=== PATIENT | female | born 1950 | race Caucasian/White ===

== ENCOUNTER 2016-09-24 10:25 | Day surgery (SDC) | payer MEDICARE, BC ==
[~2016-09-24 10:25] MED LIST: Bupivacaine 0.5%/EPINEPHrine 1:200,000 50 ML MDV ONE; Dextrose 5%-Lactated Ringers 1,000 ML IV SCH
[2016-09-24] MEDS ORDERED: cefOXitin 2 GM in Sodium Chloride 0.9% 50 ML IV ONE (10:50)
[2016-09-24] MEDS ORDERED: Midazolam 1 MG/ML 2 ML SDV ONE (12:44)
[2016-09-24] MEDS ORDERED: fentaNYL 250 MCG/5 ML SDV ONE (12:44)
[2016-09-24] MEDS ORDERED: Rocuronium 50 MG/5 ML Vial ONE (12:45)
[2016-09-24] MEDS ORDERED: Dexamethasone 4 MG/ML SDV ONE (12:45)
[2016-09-24] MEDS ORDERED: Propofol 200 MG/20 ML SDV ONE (12:45)
[2016-09-24] MEDS ORDERED: Ondansetron 4 MG/2 ML SDV ONE (12:45)
[2016-09-24] MEDS ORDERED: Neostigmine Methylsulfate 1 MG/ML 5 ML Syringe ONE (12:45)
[2016-09-24] MEDS ORDERED: Albuterol/Ipratropium 3.0-0.5 MG/3 ML Neb Soln NEB ONE ×2 (13:00→15:24)
[2016-09-24] MEDS ORDERED: Ketorolac 60 MG/2 ML SDV ONE (13:24)
[2016-09-24 14:54] VITALS: BP 104/70
--- NOTE | 2016-09-28 07:49 | OR ---
DATE OF PROCEDURE: 09/24/2016 PREOPERATIVE DIAGNOSIS: Circumferential rectal prolapse associated with thrombosis and marked inflammation involving two hemorrhoidal columns. POSTOPERATIVE DIAGNOSIS: Circumferential rectal prolapse associated with thrombosis and marked inflammation involving two hemorrhoidal columns. OPERATIVE PROCEDURE: Hemorrhoidectomy (two mixed hemorrhoidal columns excised) (64006). ANESTHESIA: General. WATER QUALITY SPECIALIST: JORGE Cardoza. INDICATION FOR PROCEDURE: A 66-year-old with longstanding problems with hemorrhoidal disease along with constipation. The patient presented to the clinic 2 days ago with an acute increased pain with hemorrhoids, was noted to have two hemorrhoidal columns, which were prolapsed and involved with acute thrombosis. The plan is to proceed with hemorrhoidectomy, excising those 2 areas for acute relief. Once these areas were healed up, she would likely benefit from a staple proxy to correct the overall problem with the prolapse. Potential risks of the procedure today including bleeding and infection were reviewed, and the patient wishes to proceed. DETAILS OF PROCEDURE: The patient was taken to the operating room and placed in a supine position. After general endotracheal anesthesia was induced, she was converted to a lithotomy position and the perianal area prepped. The 2 areas of concern were then excised with care taken to avoid removal of any significant underlying musculature. Once these were removed, both sites were closed with a running locked 4-0 Vicryl stitch, leaving the small end of the incision open to allow drainage if necessary. The area was then anesthetized with 0.5% Marcaine with epinephrine. No packing was placed, and the patient was taken to the recovery room in satisfactory condition. Carroll Estevez MD /[id number]
== END 2016-09-24 15:05 | disposition home or self-care (01) ==
LOC: JP.SDS 10:25
PROVIDERS: ATTEND Surgery
DX: K64.5 Perianal venous thrombosis (principal); K64.8 Other hemorrhoids; E11.40 Type 2 diabetes mellitus with diabetic neuropathy, unspecified; E78.5 Hyperlipidemia, unspecified; E03.9 Hypothyroidism, unspecified; Z95.0 Presence of cardiac pacemaker; Z88.8 Allergy status to other drugs, medicaments and biological substances; Z79.899 Other long term (current) drug therapy; Z79.82 Long term (current) use of aspirin
CPT/HCPCS: 36415; 46260; 80048; 85027; J0694; J1100; J1885; J2250; J2405; J2704; J3010; J7042; J7050; J7620; 88304

== ENCOUNTER 2016-11-15 07:47 | Day surgery (SDC) | payer MEDICARE, BC ==
[~2016-11-15 07:47] MED LIST changes: +Dexamethasone 4 MG/ML SDV ONE; -Dextrose 5%-Lactated Ringers 1,000 ML IV SCH; +Neostigmine Methylsulfate 1 MG/ML 5 ML Syringe ONE; +Ondansetron 4 MG/2 ML SDV ONE; +Propofol 200 MG/20 ML SDV ONE; +Rocuronium 50 MG/5 ML Vial ONE; +Succinylcholine/Normal Saline 200 MG/10 ML Syringe ONE; +fentaNYL 250 MCG/5 ML SDV ONE
[2016-11-15] MEDS ORDERED: Dextrose 5%-Lactated Ringers 1,000 ML IV SCH (08:00)
[2016-11-15] MEDS ORDERED: cefOXitin 2 GM in Sodium Chloride 0.9% 50 ML IV ONE (08:45)
[2016-11-15] MEDS ORDERED: Albuterol/Ipratropium 3.0-0.5 MG/3 ML Neb Soln NEB ONE (08:45)
[2016-11-15] MEDS ORDERED: Albuterol/Ipratropium 3.0-0.5 MG/3 ML Neb Soln ONE (09:02)
[2016-11-15] MEDS ORDERED: hydrOXYzine HCl 100 MG/2 ML SDV IM ONE (11:17)
[2016-11-15] MEDS ORDERED: Meperidine PF 75 MG/ML Syringe IM PRN (11:17)
[2016-11-15] MEDS ORDERED: Acetaminophen/oxyCODONE 325-5 MG Tab PO PRN (11:44)
[2016-11-15 15:03] VITALS: BP 120/61
--- NOTE | 2016-11-18 16:34 | OR ---
DATE OF PROCEDURE: 11/15/2016 PREOPERATIVE DIAGNOSIS: Hemorrhoidal bleeding. POSTOPERATIVE DIAGNOSIS: Hemorrhoidal bleeding associated with rectal prolapse. OPERATIVE PROCEDURE: 1. Stapled proctopexy for perineal approach to repair of rectal prolapse (66690). 2. Additional hemorrhoidal ligation and hemorrhoidectomy (39983). ANESTHESIA: General. INDICATION FOR PROCEDURE: A 66-year-old female, recently presenting with some thrombosed prolapsed hemorrhoids. These were excised and she is now healed. At the clinic it did not appear she had major problems with prolapse although previously it was thought that she did. Now she is having continued problems with painless rectal bleeding. The plan is to proceed with an anal exam under anesthesia and probable ligation and limited hemorrhoidectomy. In the past, we have gone over the stapled proctopexy procedure and the patient was given a handout on that and she is aware that at the time of operative exploration if we are seeing major problems with prolapse when she is relaxed then we may do the stapled proctopexy as well. Potential risks of the procedure including bleeding, infection, problems with incontinence related to hemorrhoidectomy, recurrence or persistence of bleeding problems over time as well as remote possibility of cardiopulmonary, septic, or hemorrhagic complications leading to were discussed, and the patient wishes to proceed. DETAILS OF PROCEDURE: The patient was taken to the operating room and placed in a supine position. After general endotracheal anesthesia was induced, she converted to a lithotomy position and a perianal prep was performed, initial examination did however at this point confirm quite a bit in way of prolapse with a relaxation there was significant prolapse of the mucosa as well as some degree of musculature, given this, decision was made at that point to proceed with a stapled proctopexy as doing something less than that I think would result in an inadequate result. At this point, the anal dilator was placed and a pursestring stitch of 3-0 Prolene was then placed in the rectal mucosa with plan to staple 5 cm above the dentate line. Once this was circumferentially placed, the proctopexy stapler was placed with the anvil above the pursestring with sutures were drawn up. The stapler was then closed. Vaginal examination was then undertaken to make sure that was not being incorporated in the staple line and stapler fired. Upon removal of stapler circumferential donuts of the rectal mucosa was confirmed and at that point some minor bleeding points were cauterized and at one point also sutured with 4-0 Vicryl stitch. The patient had one additional hemorrhoidal column that remained somewhat prominent and this was excised using a very limited amount of mucosal excision and then ligating that area with 4-0 Vicryl stitch; 0.5% Marcaine with epinephrine was injected circumferentially around the anal area and the patient was taken to the recovery room in satisfactory condition, no packing was placed and there were no other complications. Carroll Estevez MD /[id number]
== END 2016-11-15 14:30 | disposition home or self-care (01) ==
LOC: JP.SDS 07:47
PROVIDERS: ATTEND Surgery
DX: K63.5 Polyp of colon (principal); K62.3 Rectal prolapse; K64.8 Other hemorrhoids; E03.9 Hypothyroidism, unspecified; E11.9 Type 2 diabetes mellitus without complications; K21.9 Gastro-esophageal reflux disease without esophagitis; Z95.0 Presence of cardiac pacemaker; Z88.8 Allergy status to other drugs, medicaments and biological substances; Z87.891 Personal history of nicotine dependence; Z90.49 Acquired absence of other specified parts of digestive tract; Z98.890 Other specified postprocedural states
CPT/HCPCS: 36415; 45541; 46255; 80053; 83735; 84100; 85027; A9270; J0694; J1100; J2175; J2405; J2704; J3010; J3410; J7042; J7050; J7620; 88304

== ENCOUNTER 2016-11-17 09:58 | Inpatient (IN) | payer MEDICARE, BC ==
[2016-11-17] MEDS ORDERED: HYDROmorphone/Normal Saline 15 MG/30 ML PCA IV ONE (10:34)
[2016-11-17] MEDS ORDERED: Naloxone 0.4 MG/ML SDV IV PRN (10:38)
[2016-11-17] MEDS ORDERED: HYDROmorphone/Normal Saline 15 MG/30 ML PCA IV PRN (10:38)
[2016-11-17] MEDS ORDERED: Metoclopramide 10 MG/2 ML SDV ONE (10:43)
[2016-11-17] MEDS ORDERED: Dextrose 5%-Lactated Ringers 1,000 ML IV SCH (10:45)
[2016-11-17] MEDS ORDERED: Albuterol 8 GM Inhaler INH PRN (10:48)
[2016-11-17] MEDS: Pantoprazole 40 MG Vial IV SCH ×2 (11:11→22:26)
[2016-11-17] MEDS: Metoclopramide 10 MG/2 ML SDV IVPUSH SCH ×2 (14:26→21:40)
[2016-11-17] MEDS: Meropenem 500 MG in Sodium Chloride 0.9% 50 ML IV SCH (18:44)
[2016-11-17] MEDS: Dextrose 5%-Lactated Ringers 1,000 ML IV SCH (19:22)
[2016-11-17] MEDS: cycloSPORINE Ophth Drops U/D Box of 30 EYEBOTH SCH (21:39)
[2016-11-17] MEDS: Olopatadine 0.1% Ophth Soln 5 ML Bottle EYEBOTH SCH (21:40)
[2016-11-17] MEDS: Bisacodyl 5 MG Tab PO SCH (21:40)
[2016-11-17] MEDS: Docusate Sodium 100 MG Cap PO SCH (21:40)
[2016-11-18] MEDS: Meropenem 500 MG in Sodium Chloride 0.9% 50 ML IV SCH ×3 (02:11→17:19)
[2016-11-18] MEDS: Metoclopramide 10 MG/2 ML SDV IVPUSH SCH ×3 (05:12→23:17)
[2016-11-18] MEDS: Dextrose 5%-Lactated Ringers 1,000 ML IV SCH (05:13)
--- NOTE | 2016-11-18 07:38 | PCM.HP ---
H&P History of Present Illness - General Date of Service: 11/18/16 Admit Problem/Dx: Admission Diagnosis/Problem Admission Diagnosis/Problem Post Operative Ileus Urinary Retention Source of Information: Patient History Limitations: Reports: No Limitations - History of Present Illness Initial Comments - Free Text/Narative: Elysia had a proctectomy on 11/15/16. She presented to the clinic with post op urinary retention, abdominal pain and distention. She had not had a bowel movement since surgery. She was admitted to the hospital. Urinary retention of 850 mls of clear rainer urine. Location: Reports: Abdomen, Pelvis, Other (rectum ) Quality: Reports: Dull, Pressure Severity: Moderate Improves with: Reports: None Worsens with: Reports: None Associated Symptoms: Reports: No Other Symptoms Abdomen Pain Score (Numeric/FACES): 7 Lower Back Pain Score (Numeric/FACES): 7 Rectal Pain Score (Numeric/FACES): 5 - Related Data Allergies/Adverse Reactions: Allergies Allergy/AdvReac Type Severity Reaction Status Date / Time Nbcmrps-Oyk-Nex Reductase Allergy Fatigue Verified 11/15/16 08:06 Inhibitor propoxyphene napsylate AdvReac Unknown Dizziness Verified 11/15/16 08:06 [From Darcet-N 100] Home Medications: Home Meds Thyroid,Pork [Nature-Throid] 32.5 mg PO DAILY 12/29/13 [History] Albuterol Sulfate [Proair Hfa] 2 puff IH Q4H PRN 06/27/14 [History] Cholecalciferol (Vitamin D3) [Cholecalciferol] 1 cap PO DAILY 06/27/14 [History] Fexofenadine [Jaci] 180 mg PO DAILY 06/27/14 [History] Olopatadine [Patanol 0.1% Ophth Soln] 1 drop EYEBOTH BID 06/27/14 [History] Thyroid,Pork [Nature-Throid] 65 mg PO DAILY 06/27/14 [History] Aspirin [Adult Low Dose Aspirin EC] 81 mg PO DAILY 09/23/16 [History] Clotrimazole [Clotrimazole] 1 applic TOP DAILY 09/23/16 [History] Docusate Sodium [Colace] 200 mg PO DAILY 09/23/16 [History] Esomeprazole Magnesium [Nexium 24Hr] 20 mg PO DAILY 09/23/16 [History] Ibuprofen 800 mg PO Q8H PRN 09/23/16 [History] Polyethylene Glycol 3350 [MiraLAX] 17 gm PO DAILY PRN 09/23/16 [History] cycloSPORINE [Restasis] 1 drop EYEBOTH BID 09/23/16 [History] Nitroglycerin [Rectiv] 1 film RECTAL BID 11/11/16 [History] Past Medical History HEENT History: Reports: Allergic Rhinitis, Other (See Below) Other HEENT History: C/O DRY EYES Cardiovascular History: Reports: Pacemaker Other Cardiovascular History: pacemaker 2008 FOR SSS Respiratory History: Reports: Asthma, Bronchitis, Recurrent Gastrointestinal History: Reports: GERD, Hemorrhoids, Inflammatory Bowel Disease , PUD Genitourinary History: Reports: Renal Calculus, UTI, Recurrent [facility] History: Reports: Endometriosis, Polycystic Ovaries Musculoskeletal History: Reports: Back Pain, Chronic, Fibromyalgia, Osteoarthritis Other Musculoskeletal History: scoliosis Neurological History: Reports: Migraines Psychiatric History: Reports: None Endocrine/Metabolic History: Reports: Diabetes, Type II, Hypothyroidism Hematologic History: Reports: None Immunologic History: Reports: None Oncologic (Cancer) History: Reports: None Dermatologic History: Reports: None, Other (See Below) Other Dermatologic History: RASH FROM environmental ALLERGIES - Infectious Disease History Infectious Disease History: Reports: Chicken Pox, Measles, Mumps - Past Surgical History Head Surgeries/Procedures: Reports: None HEENT Surgical History: Reports: None Cardiovascular Surgical History: Reports: Pacer Respiratory Surgical History: Reports: None GI Surgical History: Reports: Cholecystectomy, Colonoscopy Female Surgical History: Reports: Dilitation & Evacuation, Other (See Below) Other Female Surgeries/Procedures: D&C. breast and cervical cysts removed and benign Endocrine Surgical History: Reports: None Neurological Surgical History: Reports: None Musculoskeletal Surgical History: Reports: None Oncologic Surgical History: Reports: None Dermatological Surgical History: Reports: None Social & Family History - Family History Family Medical History: Noncontributory - Tobacco Use Smoking Status *Q: Former Smoker Years of Tobacco use: 10 Packs/Tins Daily: 1 Used Tobacco, but Quit: No Month Tobacco Last Used: years ago Second Hand Smoke Exposure: No - Caffeine Use Caffeine Use: Reports: Coffee, Soda, Tea - Alcohol Use Days Per Week of Alcohol Use: 0 - Recreational Drug Use Recreational Drug Use: No H&P Review of Systems - Review of Systems: Review Of Systems: See Below General: Reports: Weakness, Fatigue, Decreased Appetite HEENT: Reports: No Symptoms Pulmonary: Reports: No Symptoms Cardiovascular: Reports: No Symptoms Gastrointestinal: Reports: Abdominal Pain, Constipation, Decreased Appetite, Distension Genitourinary: Reports: Retention Musculoskeletal: Reports: No Symptoms Skin: Reports: No Symptoms Psychiatric: Reports: No Symptoms Neurological: Reports: No Symptoms Hematologic/Lymphatic: Reports: No Symptoms Immunologic: Reports: No Symptoms Exam - Exam Exam: See Below - Vital Signs Vital Signs: Last Vital Signs Temp 97.6 F 11/18/16 07:00 Pulse 70 11/18/16 07:00 Resp 18 11/18/16 07:00 BP 105/68 11/18/16 07:00 Pulse Ox 91 L 11/18/16 07:19 Weight: 150 lb 0.005 oz - Exam Quality Assessment: Urinary Catheter, DVT Prophylaxis General: Alert, Oriented, Mild Distress HEENT: PERRLA Neck: Supple, Trachea Midline Lungs: Clear to Auscultation, Normal Respiratory Effort Cardiovascular: Regular Rate, Regular Rhythm GI/Abdominal Exam: Soft, Tender (mildly tender, high pitched active bowel sounds. ) (Female) Exam: Deferred Rectal (Female) Exam: Deferred Back Exam: Normal Inspection, Full Range of Motion Extremities: Normal Inspection, Normal Range of Motion, No Pedal Edema Skin: Warm, Dry, Intact Neurological: Cranial Nerves Intact Neuro Extensive - Mental Status: Alert, Oriented x3, Normal Mood/Affect Neuro Extensive - Motor, Sensory, Reflexes: CN II-XII Intact, Normal Gait, Normal Reflexes Psychiatric: Alert, Normal Affect, Normal Mood - Patient Data Lab Results Last 24 hrs: Laboratory Results - last 24 hr 11/17/16 11/17/16 11/17/16 Range/Units 11:08 11:08 11:08 WBC 9.8 (4.5-11.0) K/uL RBC 4.52 (3.30-5.50) M/uL Hgb 13.1 (12.0-15.0) g/dL Hct 40.0 (36.0-48.0) % MCV 89 (80-98) fL MCH 29 (27-31) pg MCHC 33 (32-36) % Plt Count 278 (150-400) K/uL Sodium 140 (140-148) mmol/L Potassium 3.6 (3.6-5.2) mmol/L Chloride 103 (100-108) mmol/L Carbon Dioxide 29 (21-32) mmol/L Anion Gap 8.4 (5.0-14.0) mmol/L BUN 12 (7-18) mg/dL Creatinine 0.9 (0.6-1.0) mg/dL Est Cr Clr Drug Dosing 45.14 mL/min Estimated GFR (MDRD) > 60 (>60) Glucose 140 H (74-106) mg/dL Calcium 8.6 (8.5-10.1) mg/dL Phosphorus 2.6 (2.5-4.9) mg/dL Magnesium 1.8 (1.8-2.4) mg/dL Total Bilirubin 0.6 (0.2-1.0) mg/dL AST 170 H D (15-37) U/L ALT 234 H (12-78) U/L Alkaline Phosphatase 150 H (46-116) U/L Total Protein 7.5 (6.4-8.2) g/dL Albumin 3.4 (3.4-5.0) g/dL Globulin 4.1 H (2.3-3.5) g/dL Albumin/Globulin Ratio 0.8 L (1.2-2.2) TSH, Ultra Sensitive 3.755 H (0.358-3.740) uIU/mL 11/18/16 11/18/16 Range/Units 04:00 04:00 WBC 9.1 (4.5-11.0) K/uL RBC 4.23 (3.30-5.50) M/uL Hgb 12.1 (12.0-15.0) g/dL Hct 38.1 (36.0-48.0) % MCV 90 (80-98) fL MCH 29 (27-31) pg MCHC 32 (32-36) % Plt Count 245 (150-400) K/uL Sodium 140 (140-148) mmol/L Potassium 3.6 (3.6-5.2) mmol/L Chloride 105 (100-108) mmol/L Carbon Dioxide 28 (21-32) mmol/L Anion Gap 6.7 (5.0-14.0) mmol/L BUN 10 (7-18) mg/dL Creatinine 0.8 (0.6-1.0) mg/dL Est Cr Clr Drug Dosing 50.79 mL/min Estimated GFR (MDRD) > 60 (>60) Glucose 138 H (74-106) mg/dL Calcium 8.1 L (8.5-10.1) mg/dL Phosphorus (2.5-4.9) mg/dL Magnesium (1.8-2.4) mg/dL Total Bilirubin 0.6 (0.2-1.0) mg/dL AST 109 H (15-37) U/L ALT 203 H (12-78) U/L Alkaline Phosphatase 140 H (46-116) U/L Total Protein 6.6 (6.4-8.2) g/dL Albumin 3.0 L (3.4-5.0) g/dL Globulin 3.6 H (2.3-3.5) g/dL Albumin/Globulin Ratio 0.8 L (1.2-2.2) TSH, Ultra Sensitive (0.358-3.740) uIU/mL Result Diagrams: 11/18/16 04:00 11/18/16 04:00 *Q Meaningful Use (ADM) - VTE *Q VTE Criteria *Q: - Stroke *Q Stroke Criteria *Q: - AMI *Q AMI Criteria *Q: Problem List Initiated/Reviewed/Updated: Yes Orders Last 24hrs: Active Orders 24 hr Category Date Time Status Admission Status [Patient Status] [ADT] Routine ADT 11/17/16 09:40 Active Communication Order [RC] ROUTINE Care 11/17/16 10:36 Active Butterfield Catheter Insertion [Insert Urinary Catheter] [OM. Care 11/17/16 10:45 Ordered PC] Q24H Intake and Output [RC] QSHIFT Care 11/17/16 10:38 Active May Shower [RC] ASDIRECTED Care 11/18/16 07:10 Active Overnight Pulse Oximetry [RC] Click to Edit Care 11/17/16 10:35 Active Up to Chair [RC] QID Care 11/17/16 10:35 Active Urinary Catheter Assessment [RC] Q12H Care 11/17/16 10:43 Active Vital Signs [RC] Q4H Care 11/17/16 10:35 Active Abdomen 2V AP Flat Upright [CR] DAILY Exams 11/19/16 07:15 Ordered Abdomen 2V AP Flat Upright [CR] DAILY Exams 11/20/16 07:15 Ordered Abdomen 2V AP Flat Upright [CR] DAILY Exams 11/21/16 07:15 Ordered Abdomen 2V AP Flat Upright [CR] DAILY Exams 11/22/16 07:15 Ordered Abdomen 2V AP Flat Upright [CR] DAILY Exams 11/23/16 07:15 Ordered Abdomen 2V AP Flat Upright [CR] Routine Exams 11/18/16 04:00 Taken BASIC METABOLIC PANEL,BMP [CHEM] Timed Lab 11/19/16 04:00 Ordered CBC W/O DIFF,HEMOGRAM [HEME] Timed Lab 11/19/16 04:00 Ordered MAGNESIUM [CHEM] Timed Lab 11/19/16 04:00 Ordered PHOSPHORUS [CHEM] Timed Lab 11/19/16 04:00 Ordered Albuterol [Ventolin HFA] Med 11/17/16 10:48 Active 0 gm INH QID PRN Bisacodyl [Dulcolax] Med 11/17/16 21:00 Active 10 mg PO BID Dextrose 5%-Lactated Ringers 1,000 ml Med 11/17/16 10:45 Active IV ASDIRECTED Docusate Sodium [Colace] Med 11/17/16 21:00 Active 100 mg PO BID Erythromycin Lactobionate 125 mg Med 11/17/16 14:00 Active Sodium Chloride 0.9% [Normal Saline] 100 ml IV Q6H HYDROmorphone/Normal Saline [Dilaudid HUM[employer] RESOURCES DIRECTOR 15 MG in NS Med 11/17/16 10:38 Active 30 ML] 0 mg IV ASDIRECTED PRN Meropenem [Merrem] 500 mg Med 11/17/16 18:00 Active Sodium Chloride 0.9% [Normal Saline] 50 ml IV Q8H Metoclopramide [Reglan] Med 11/17/16 14:00 Active 10 mg IVPUSH Q8H Naloxone [Narcan] Med 11/17/16 10:38 Active 0.1 mg IV ASDIRECTED PRN Olopatadine [Patanol 0.1% Ophth Soln] Med 11/17/16 21:00 Active 0 ml EYEBOTH BID Pantoprazole [ProTONIX IV] Med 11/17/16 11:00 Active 40 mg IV Q12H cycloSPORINE [Restasis] Med 11/17/16 21:00 Active 1 each EYEBOTH BID Pulse Oximetry Continuous Monitoring [OM.PC] Routine Oth 11/17/16 10:35 Ordered SCD [Sequential Compression Device] [OM.PC] Routine Ot 11/17/16 13:10 Ordered Medication Orders Albuterol (Ventolin Hfa) 0 gm INH QID PRN PRN Reason: RESP Bisacodyl (Dulcolax) 10 mg PO BID [facility] Last Admin: 11/17/16 21:40 Dose: 10 mg Cyclosporine (Restasis) 1 each EYEBOTH BID [facility] Last Admin: 11/17/16 21:39 Dose: 1 drop Docusate Sodium (Colace) 100 mg PO BID [facility] Last Admin: 11/17/16 21:40 Dose: 100 mg Hydromorphone HCl (Dilaudid Concrete Form Setter 15 Mg In Ns 30 Ml) 0 mg IV ASDIRECTED PRN; Protocol PRN Reason: HUMAN RESOURCES DIRECTOR PAIN CONTROL Dextrose/Lactated Ringer's (Dextrose 5%-Lactated Ringers) 1,000 mls @ 100 mls/ hr IV ASDIRECTED [facility] Last Admin: 11/18/16 05:13 Dose: 100 mls/hr Infusion: 11/18/16 05:13 Dose: 100 mls/hr Admin: 11/17/16 19:22 Dose: 100 mls/hr Erythromycin Lactobionate 125 (mg/ Sodium Chloride) 100 mls @ 100 mls/hr IV Q6H [facility] Last Admin: 11/18/16 01:10 Dose: 100 mls/hr Admin: 11/17/16 19:26 Dose: 100 mls/hr Admin: 11/17/16 14:25 Dose: 100 mls/hr Meropenem 500 mg/ Sodium (Chloride) 50 mls @ 100 mls/hr IV Q8H [facility] Last Admin: 11/18/16 02:11 Dose: 100 mls/hr Admin: 11/17/16 18:44 Dose: 100 mls/hr Metoclopramide HCl (Reglan) 10 mg IVPUSH Q8H [facility] Last Admin: 11/18/16 05:12 Dose: 10 mg Admin: 11/17/16 21:40 Dose: 10 mg Admin: 11/17/16 14:26 Dose: 10 mg Naloxone HCl (Narcan) 0.1 mg IV ASDIRECTED PRN PRN Reason: decreased respiratory rate Olopatadine HCl (Patanol 0.1% Ophth Soln) 0 ml EYEBOTH BID [facility] Last Admin: 11/17/16 21:40 Dose: 1 drop Pantoprazole Sodium (Protonix Iv) 40 mg IV Q12H [facility] Last Admin: 11/17/16 22:26 Dose: 40 mg Admin: 11/17/16 11:11 Dose: 40 mg Assessment: Post Proctectomy 11/15/16 Post Operative Ileus Urinary Retention IBS Plan: Admit to Inpatient Plan of hospitalization 3 nights and 4 days depending on condition If patient develops fever will check an abdominal CT Scan. See copy of EMR for orders. Nathalia Sofia
[2016-11-18] MEDS: Docusate Sodium 100 MG Cap PO SCH ×2 (08:47→20:03)
[2016-11-18] MEDS: Olopatadine 0.1% Ophth Soln 5 ML Bottle EYEBOTH SCH ×2 (08:47→20:04)
[2016-11-18] MEDS: cycloSPORINE Ophth Drops U/D Box of 30 EYEBOTH SCH ×2 (08:47→20:04)
[2016-11-18] MEDS: Bisacodyl 5 MG Tab PO SCH ×2 (08:47→20:03)
--- NOTE | 2016-11-18 10:04 | CR ---
2 view abdomen There is no large or small bowel distention. There is minimal formed stool. There are few scattered air-fluid levels in the right colon. The gallbladder is absent. There are degenerative findings the lumbar spine with scoliosis. Impression: 1. No acute findings of the abdomen.
[2016-11-18] MEDS ORDERED: Ondansetron 4 MG/2 ML SDV IVPUSH ONE (10:20)
[2016-11-18] MEDS: Pantoprazole 40 MG Vial IV SCH (10:26)
[2016-11-18] MEDS: Ondansetron 4 MG/2 ML SDV IVPUSH SCH ×2 (13:38→20:03)
[2016-11-19] MEDS: Ondansetron 4 MG/2 ML SDV IVPUSH SCH ×4 (01:13→19:52)
[2016-11-19] MEDS: Meropenem 500 MG in Sodium Chloride 0.9% 50 ML IV SCH ×3 (01:31→19:53)
[2016-11-19] MEDS: Dextrose 5%-Lactated Ringers 1,000 ML IV SCH ×2 (01:31→17:18)
[2016-11-19] MEDS: Metoclopramide 10 MG/2 ML SDV IVPUSH SCH ×3 (05:05→21:37)
[2016-11-19] MEDS ORDERED: Albuterol 8 GM Inhaler INH PRN (06:56)
[2016-11-19] MEDS ORDERED: Ibuprofen 800 MG Tab PO PRN (06:56)
[2016-11-19] MEDS ORDERED: Polyethylene Glycol 3350 Powder 17 GM Packet PO PRN (06:56)
[2016-11-19] MEDS ORDERED: Iopamidol 612 MG/ML 100 ML Bottle IV PRN (07:09)
[2016-11-19] MEDS ORDERED: Sodium Chloride 0.9% 71 ML IV SCH (07:15)
--- NOTE | 2016-11-19 07:59 | PN ---
DATE OF SERVICE: 11/19/2016 SUBJECTIVE: Elysia is passing gas. Has not had a bowel movement yet. Did have an increased amount of perineal and rectal pain last evening. She was given an ice pack and measures to prevent pulling of the catheter and this did help somewhat. Temp max was 100.1. She states she is feeling a little bit better. Oximetry reveals desaturation in the 80s without O2, so she continues to be on continuous oxygen which is new for her. She is reporting pressure in the right side of her face from her sinuses. She has history of allergies. When evaluating her symptoms of low oxygen saturation, she states that her does state that she snores and will occasionally stop breathing. She does catch herself waking up where she thinks she has not been breathing or waking up coughing. REVIEW OF SYSTEMS: Remainder of review of systems negative for any pertinent positives and negatives. OBJECTIVE: GENERAL: Elysia is a 66-year-old female. TPR 99, 72, 14. O2 sats by pulse ox is 93% at 2 L. HEENT: Negative. NECK: Supple. HEART: Regular rate and rhythm. LUNGS: Reveal decreased breath sounds at bilateral bases of her lungs. Rales are heard in the right base and middle lobes. ABDOMEN: Soft. Less distended. Nontender. EXTREMITIES: Without peripheral edema and SCDs are on. ASSESSMENT: 1. Stapled proctopexy, outpatient 11/15/2016. 2. Postoperative ileus. 3. Low oximetry. 4. History of irritable bowel syndrome. PLAN: 1. Abdominal and pelvic CT with IV contrast. 2. Chest x-ray, PA and lateral. 3. DuoNeb q.i.d. and p.r.n. 4. Respiratory therapy to evaluate for home O2. 5. Restart home medications. Jaci 180 mg p.o. daily, nitroglycerin 1 film rectally b.i.d., thyroid pork 32.5 mg p.o. daily, thyroid pork 65 mg p.o. daily, aspirin 81 mg p.o. daily, clotrimazole 1 applicator topical daily to affected area, Motrin 800 mg p.o. q.8 hours p.r.n. back pain, Patanol 1 drop to each eye b.i.d., MiraLAX 17 g p.o. daily p.r.n. and Restasis 1 drop to each eye b.i.d. 6. Good pulmonary toilet encouraged. 7. We will evaluate p.r.n. or in a.m. Nathalia Dunn PA-C /[id number]
[2016-11-19] MEDS ORDERED: cycloSPORINE Ophth Drops U/D Box of 30 EYEBOTH SCH (09:00)
[2016-11-19] MEDS ORDERED: Non-Formulary Medication 1 Each (Thyroid,Pork [Nature-Throid] 65 MG) PO SCH (09:00)
[2016-11-19] MEDS ORDERED: NITROGLYCERIN RECTAL SCH (09:00)
[2016-11-19] MEDS ORDERED: THYROID PORK 32.5 MG PO SCH (09:00)
[2016-11-19] MEDS ORDERED: Olopatadine 0.1% Ophth Soln 5 ML Bottle EYEBOTH SCH (09:00)
[2016-11-19] MEDS: Clotrimazole 1% Crm 30 GM Tube TOP SCH (09:12)
[2016-11-19] MEDS: Loratadine 10 MG Tab PO SCH (09:13)
[2016-11-19] MEDS: Bisacodyl 5 MG Tab PO SCH ×2 (09:14→20:01)
[2016-11-19] MEDS: Docusate Sodium 100 MG Cap PO SCH ×2 (09:14→20:00)
[2016-11-19] MEDS: Olopatadine 0.1% Ophth Soln 5 ML Bottle EYEBOTH SCH ×2 (09:15→20:14)
[2016-11-19] MEDS: Aspirin 81 MG Tab.EC PO SCH (09:15)
[2016-11-19] MEDS: cycloSPORINE Ophth Drops U/D Box of 30 EYEBOTH SCH ×2 (09:15→20:13)
--- NOTE | 2016-11-19 09:25 | CT ---
Abdomen pelvis CT. History: Status post proctectomy. Evaluate ileus. Technique: IV contrast was administered followed by axial imaging from the lung bases extending thro ugh the abdomen and pelvis. Coronal images were reconstructed. Total DLP: 836. Comparison: 17 August 2015. Findings: Limited evaluation of lower lung mantilla demonstrates no abnormalities. There is fatty infi ltration throughout the liver. No focal lesions are demonstrated. The gallbladder is surgically abse nt. The pancreas, spleen, and adrenal glands are unremarkable. The kidneys demonstrate symmetric exc retion of contrast. There is no hydronephrosis. There is a surgical suture line at the region of the rectum. There is no evidence for complication. There is trace free fluid in the pelvis. There is no large or small bowel distention. There is liqui d type stool within the distal colon. There is a Butterfield catheter decompressing the urinary bladder. Impression: 1. Postsurgical changes of the rectum. 2. There is evidence for a mild postoperative ileus.
[2016-11-19] MEDS: Albuterol/Ipratropium 3.0-0.5 MG/3 ML Neb Soln NEB SCH ×4 (09:30→20:04)
--- NOTE | 2016-11-19 09:35 | CR ---
2 view abdomen Comparison: Previous day. There is a gaseous appearance throughout the abdomen. Again noted are a few air-fluid levels within the colon. There is no small bowel distention. There is no free air. Impression: 1. Mild postop ileus.
--- NOTE | 2016-11-19 09:35 | CR ---
Two-view chest There is a cardiac pacemaker on the left with 2 intact leads. The heart and vascular structures are within normal limits. There are no infiltrates or effusions. Pression: 1. No acute findings.
[2016-11-19] MEDS: Pantoprazole 40 MG Vial IV SCH ×2 (12:06)
[2016-11-19] MEDS: Potassium Chloride 20 MEQ, Lidocaine 1% 2 ML in Sodium Chloride 0.9% 100 ML IV SCH ×3 (12:53→21:37)
[2016-11-20] MEDS: Pantoprazole 40 MG Vial IV SCH ×2 (00:33→11:59)
[2016-11-20] MEDS: Ondansetron 4 MG/2 ML SDV IVPUSH SCH ×3 (01:56→14:48)
[2016-11-20] MEDS: Meropenem 500 MG in Sodium Chloride 0.9% 50 ML IV SCH ×2 (01:57→11:25)
[2016-11-20] MEDS ORDERED: Iohexol 647 MG/ML 50 ML SDV PO SCH ×2 (03:30→04:15)
[2016-11-20] MEDS: Metoclopramide 10 MG/2 ML SDV IVPUSH SCH ×2 (05:26→14:55)
[2016-11-20] MEDS: Dextrose 5%-Lactated Ringers 1,000 ML IV SCH (05:26)
[2016-11-20] MEDS: Albuterol/Ipratropium 3.0-0.5 MG/3 ML Neb Soln NEB SCH ×4 (07:00→20:01)
--- NOTE | 2016-11-20 08:57 | PN ---
DATE OF SERVICE: 11/20/2016 SUBJECTIVE: Elysia had a respiratory therapist's evaluation for oxygen and, per nursing, she will be going home with home O2 with at least 1 L all the time. She just had a bowel movement. She is feeling better today, less pain. On pain scale of 1 to 10, it is a 2 to 3, and it is in her perineum area. REVIEW OF SYSTEMS: Remainder of review of systems negative for any pertinent positives and negatives. OBJECTIVE: GENERAL: Elysia Wheatley is a 66-year-old female. She is alert and orientated. Skin is warm and dry. Color is good. She looks much better today. VITAL SIGNS: 5 feet 1 inch. Weight is 150 pounds. TPR is 98.7, 82, 18, and blood pressure 135/65. HEENT: Negative. NECK: Supple. HEART: Regular rate and rhythm. LUNGS: Clear. ABDOMEN: Soft and nontender. EXTREMITIES: Without peripheral edema. ASSESSMENT: 1. Status post stapled proctopexy, outpatient, 11/15/2016. 2. Postoperative ileus. 3. Low oximetry requiring home O2. 4. History of irritable bowel syndrome. PLAN: 1. Discontinue Butterfield. 2. Full liquid diet for breakfast. 3. Regular diet for lunch. 4. We will evaluate p.r.n. or in a.m. 5. If the patient is unable to void, communication order was written. Nathalia Dunn PA-C /[id number]
[2016-11-20] MEDS: Bisacodyl 5 MG Tab PO SCH ×2 (09:46→20:00)
[2016-11-20] MEDS: Clotrimazole 1% Crm 30 GM Tube TOP SCH (09:47)
[2016-11-20] MEDS: Olopatadine 0.1% Ophth Soln 5 ML Bottle EYEBOTH SCH ×2 (10:26→20:01)
[2016-11-20] MEDS: Aspirin 81 MG Tab.EC PO SCH (10:27)
[2016-11-20] MEDS: cycloSPORINE Ophth Drops U/D Box of 30 EYEBOTH SCH ×2 (10:27→20:01)
[2016-11-20] MEDS: Docusate Sodium 100 MG Cap PO SCH ×2 (10:27→20:00)
[2016-11-20] MEDS: Loratadine 10 MG Tab PO SCH (10:27)
[2016-11-20] MEDS: Acetaminophen/HYDROcodone 325-5 MG Tab PO PRN ×2 (11:55→23:42)
[2016-11-20] MEDS ORDERED: Sodium Chloride 0.9% 1,000 ML IV SCH (13:15)
[2016-11-20] MEDS: Potassium Chloride 20 MEQ, Lidocaine 1% 2 ML in Sodium Chloride 0.9% 100 ML IV SCH ×3 (14:00→14:55)
[2016-11-20] MEDS: Ondansetron 4 MG Tab.DIS PO SCH ×2 (16:08→21:20)
[2016-11-20] MEDS: Metoclopramide 10 MG Tab PO SCH ×2 (16:51→23:35)
[2016-11-20] MEDS: Erythromycin Ethylsuccinate Susp 400 MG/5 ML 100 ML Bottle PO SCH ×2 (16:52→21:21)
[2016-11-20] MEDS: Potassium Chloride 20 MEQ Tab.ER PO SCH (17:59)
[2016-11-21] MEDS: Erythromycin Ethylsuccinate Susp 400 MG/5 ML 100 ML Bottle PO SCH ×3 (03:07→10:42)
[2016-11-21] MEDS: Ondansetron 4 MG Tab.DIS PO SCH ×2 (03:07→10:41)
[2016-11-21 07:15] VITALS: BP 129/68
[2016-11-21] MEDS: Metoclopramide 10 MG Tab PO SCH (07:29)
[2016-11-21] MEDS: Albuterol/Ipratropium 3.0-0.5 MG/3 ML Neb Soln NEB SCH (07:29)
--- NOTE | 2016-11-21 09:43 | DISCH ---
ADMISSION DIAGNOSES: 1. Postop proctectomy 11/15/2016 with postop urinary retention and postop ileus. 2. Hypothyroidism. 3. Allergic rhinitis. 4. Dry eyes. 5. Pacemaker. 6. Asthma. 7. Recurrent bronchitis. 8. Gastroesophageal reflux disease. 9. Inflammatory bowel disease. 10.History of renal calculus. 11.Chronic back pain. 12.Fibromyalgia. 13.Osteoarthritis. 14.Scoliosis. 15.Migraine headaches. 16.Diabetes, type 2, diet controlled. DISCHARGE DIAGNOSES: Proctectomy 11/15/2016 with postop urinary retention and postop ileus, resolved. HISTORY: Elysia Wheatley is a 66-year-old female who had a proctectomy on Tuesday11/15/2016. The surgery was done as an outpatient. She presented to the clinic on 11/17/2016 with urinary retention. She had 850 in her bladder, and Butterfield catheter remained in and she had a postop ileus. She was admitted to the hospital. On admission, she was started on erythromycin 125 mg IV piggyback every 6 hours, Dilaudid WEBSITE/BLOG EDITOR, Reglan 10 mg IV q.8 hours, Protonix 40 mg IV every 12 hours. On 11/18/2016, she had not had a bowel movement. Her pulse oximetry was in 80%, and she was given oxygen per nasal cannula 2 L. With increased pain, a perineal ice pack was given and she was started on ibuprofen which she takes at home as well as all her home medications. On 11/19/2016, her daily flat and upright abdominal films were improving. She still has not had a bowel movement. A CT scan was obtained as well as a chest x-ray due to new onset of low oximetry in the 80s and with O2, she would remain 91% to 95% on 1 L of O2. On 11/20/2016, she started having bowel movements. Her diet was advanced. Pain has continually to improve. Butterfield catheter was removed. She was voiding without difficulty. Oral intake was adequate. Pain controlled. IV did infiltrate but her oral intake was adequate and for the past 24 hours, has had 4 to 5 bowel movements. Elysia also had a respiratory therapy consult and evaluation for home O2, and she did qualify to go home with oxygen, follow up with her primary care provider to have a sleep study evaluation in addition to the O2. On 11/21/2016, [place] pain was managed. Her activity was good. She was voiding without difficulty, having bowel movements, oral intake adequate and she was ready to be discharged to home. REVIEW OF SYSTEMS: Remainder of review of systems are completely negative for any other pertinent positives and negatives. PHYSICAL EXAMINATION: GENERAL: Elysia Wheatley is a 66-year-old female. VITAL SIGNS: Height is 5 feet 1 inch, weight is 151 pounds. TPR 98.2, 79, 16. Blood pressure 129/68. HEENT: Negative. NECK: Supple. HEART: Regular rate and rhythm. LUNGS: Clear. ABDOMEN: Soft, nontender. EXTREMITIES: Without peripheral edema. DISPOSITION: Discharged to home. CONDITION: Stable and improving. FOLLOWUP: She is to follow up with Carroll Estevez MD, at [facility] on Tuesday11/24/2016. She has an appointment made already. HOME MEDICATIONS: [place] 5/325 mg 1 to 2 tabs every 4 hours p.r.n. pain #30 p.r.n. pain, she had some already at home from the procedure she had on Tuesday, so she will fill this if needed. Bisacodyl Dulcolax 10 mg p.o. b.i.d. p.r.n. She is to resume her home medications, vitamin D3 1 g daily, Colace 100 mg take two daily, Nexium 20 mg daily, Patanol 0.1% ophthalmic solution one drop in each eye b.i.d., thyroid pork 32.5 mg, and cyclosporine Restasis one drop in each eye b.i.d., MiraLAX 17 g p.o. daily, Jaci 180 mg p.o. daily, ibuprofen 800 mg q.8 hours p.r.n. additional pain, clotrimazole 15 g one applicator twice daily to rash, aspirin 81 mg p.o. daily, albuterol inhaler 8.5 g ProAir two puffs every 4 hours p.r.n. DIET: Usual diet as tolerated. Drink 8 to 10 glasses of water a day. DISCHARGE INSTRUCTIONS: Driving, do not drive while on pain medication. Shower bathing, may shower. Keep operative site clean and dry. Notify provider of fever, increased pain, nausea, or vomiting. Use incentive spirometer 10 times every hour while awake until resume normal activity and use oxygen therapy as prescribed continuous and to follow up with primary care provider and to have sleep study set up.
[2016-11-21] MEDS: Clotrimazole 1% Crm 30 GM Tube TOP SCH (10:41)
[2016-11-21] MEDS: Olopatadine 0.1% Ophth Soln 5 ML Bottle EYEBOTH SCH (10:41)
[2016-11-21] MEDS: Docusate Sodium 100 MG Cap PO SCH (10:41)
[2016-11-21] MEDS: cycloSPORINE Ophth Drops U/D Box of 30 EYEBOTH SCH (10:41)
[2016-11-21] MEDS: Bisacodyl 5 MG Tab PO SCH (10:41)
[2016-11-21] MEDS: Potassium Chloride 20 MEQ Tab.ER PO SCH (10:41)
[2016-11-21] MEDS: Aspirin 81 MG Tab.EC PO SCH (10:41)
[2016-11-21] MEDS: Loratadine 10 MG Tab PO SCH (10:41)
--- NOTE | 2016-11-22 08:29 | HP ---
HISTORY OF PRESENT ILLNESS: This is a 66-year-old who is 48 hours status post a staple proctopexy along with limited hemorrhoidectomy. She presents this day with abdominal distention as well as urinary retention. She had some degree of emesis. She is not able to maintain significant oral intake and was quite uncomfortable with the ileus and urinary retention and therefore was admitted for IV hydration, and rest of the GI tract along with placement of the Butterfield catheter. PAST MEDICAL HISTORY: The patient's past medical history includes; 1. Cardiac pacemaker in place. 2. Hyperlipidemia. 3. History of hypothyroidism, treated. 4. History of irritable bowel syndrome. 5. History of nephrolithiasis. 6. History of type 2 diabetes, controlled with diet. 7. Hemorrhoids associated with rectal prolapse. PAST SURGICAL HISTORY: Staple proctopexy for prolapse and limited hemorrhoidectomy. SOCIAL HISTORY: The patient is , does not smoke, and minimal alcohol use. FAMILY HISTORY: Noncontributory. MEDICATIONS: As per the attached sheets and as on the computer. ALLERGIES: STATINS AND DARVOCET. REVIEW OF SYSTEMS: Negative other than for the above more acute problems. PHYSICAL EXAMINATION: GENERAL: The patient is alert with stable vital signs. VITAL SIGNS: Temperature is 97.6. HEENT: Some degree of dryness of mucous membranes consistent with her degree of dehydration. HEART: Regular rhythm, S1, S2. LUNGS: Clear. BREASTS: Exam deferred. ABDOMEN: Fairly distended. There is no tenderness per se, but more or less some diffuse distention. She also has a little bit more discomfort in the suprapubic area. RECTAL: Rectal exam externally shows the recent surgical changes. PELVIC: Exam is deferred. LABORATORY DATA: Laboratory exam is pending. IMPRESSION: Status post staple proctopexy and limited hemorrhoidectomy with probably reflexive GI tract ileus along with urinary retention. This condition we will some time see after hemorrhoidectomies or inguinal hernia repairs. PLAN: The plan, at this point, would be to admit with IV hydration. We will make her NPO except for a few of her medications and continue Dulcolax oral tablets along with some Colace and give her some IV erythromycin to augment GI tract motility along with Reglan IV. We will empirically add some meropenem in case there is some infectious complication, although this is early in the course for that to have developed. If the patient were to develop findings suggestive of an infection, CT scan of the abdomen and pelvis should be obtained to rule out any involving pelvic abscess secondary to the procedure done 48 hours ago. Carroll Estevez MD /[id number]
--- NOTE | 2016-11-22 10:56 | CR ---
Limited examination demonstrates oral contrast within bowel loops, small bowel into the pelvis. No d ilated small bowel loops.
== END 2016-11-21 09:40 | disposition home or self-care (01) | DRG 390 ==
LOC: JP.MS 09:58
PROVIDERS: ADMIT Surgery; ATTEND Surgery
DX: K56.7 Ileus, unspecified (principal); R33.9 Retention of urine, unspecified; R09.02 Hypoxemia; Z98.890 Other specified postprocedural states; Z99.81 Dependence on supplemental oxygen; J45.909 Unspecified asthma, uncomplicated; M79.7 Fibromyalgia; M54.9 Dorsalgia, unspecified; G89.29 Other chronic pain; M19.90 Unspecified osteoarthritis, unspecified site; E03.9 Hypothyroidism, unspecified; Z95.0 Presence of cardiac pacemaker; Z87.891 Personal history of nicotine dependence; Z79.82 Long term (current) use of aspirin; Z88.8 Allergy status to other drugs, medicaments and biological substances; H04.129 Dry eye syndrome of unspecified lacrimal gland; K21.9 Gastro-esophageal reflux disease without esophagitis; E11.9 Type 2 diabetes mellitus without complications; G43.909 Migraine, unspecified, not intractable, without status migrainosus; M41.9 Scoliosis, unspecified; K63.9 Disease of intestine, unspecified
CPT/HCPCS: 36415; 71020; 71020-26; 74020; 74020-26; 74177; 74177-26; 80048; 80053; 83735; 84100; 84443; 85027; 94640; 94640-76; 94762; A9270-GY; C9113; J1170; J1364; J2185; J2405; J2765; J3480; J7030; J7042; J7050; J7620; Q9967

== ENCOUNTER 2016-11-26 05:53 | Emergency (ER) | payer MEDICARE, BC ==
[2016-11-26 06:30] VITALS: BP 116/59
--- NOTE | 2016-11-26 06:56 | EDM.PDOC ---
ED HPI GENERAL MEDICAL PROBLEM - General Chief Complaint: General Stated Complaint: UNABLE TO HAVE BOWEL MOVEMENT Time Seen by Provider: 11/26/16 06:23 Source of Information: Reports: Patient History Limitations: Reports: No Limitations - History of Present Illness INITIAL COMMENTS - FREE TEXT/NARRATIVE: History of present illness: [58-year-old female was recently had a hemorrhoidectomy presenting with stool retention and painful bowel movements. She recently was hospitalized for same. She is able to urinate she says but she has to custom grinder the shower and then she can release her urine.] Review of systems: As per history of present illness and below otherwise all systems reviewed and negative. Past medical history: As per history of present illness and as reviewed below otherwise noncontributory. Surgical history: As per history of present illness and as reviewed below otherwise noncontributory. Social history: No reported history of drug or alcohol abuse. Family history: As per history of present illness and as reviewed below otherwise noncontributory. Physical exam: HEENT: Atraumatic, normocephalic Lungs: Clear to auscultation Heart: S1S2, regular, Abdomen: Soft, nondistended, nontender. Pelvis: Stable nontender. Genitourinary: We bladder scanned her and she had 245 mL present. Rectal: She has a large volume of soft stool present on rectal examination and the exam is quite painful for her. Extremities: Atraumatic, negative for cords or calf pain. Neurovascular unremarkable. Neuro: Awake, alert, oriented. Exam nonfocal. Diagnostics: [] Therapeutics: [] Impression: [Stool retention] Plan: [Dr. Estevez happened to be here and had done the surgery so I spoke with him and he is recommending we have her use mag citrate to try to relieve her stool retention and did not use enemas. She is at risk for urine retention but she can phone to the shower and release her urine at this point and she would prefer doing that rather than having a Butterfield catheter. I discussed with her how to use the mag citrate] Definitive disposition and diagnosis as appropriate pending reevaluation and review of above. rectum Pain Score (Numeric/FACES): 6 - Related Data Allergies Allergy/AdvReac Type Severity Reaction Status Date / Time [id number]-[id number] Reductase Allergy Fatigue Verified 11/15/16 08:06 Inhibitor propoxyphene napsylate AdvReac Unknown Dizziness Verified 11/15/16 08:06 [From Darcet-N 100] Home Meds: Home Meds Thyroid,Pork [Nature-Throid] 32.5 mg PO DAILY 12/29/13 [History] Albuterol Sulfate [Proair Hfa] 2 puff IH Q4H PRN 06/27/14 [History] Cholecalciferol (Vitamin D3) [Cholecalciferol] 1 cap PO DAILY 06/27/14 [History] Fexofenadine [Jaci] 180 mg PO DAILY 06/27/14 [History] Olopatadine [Patanol 0.1% Ophth Soln] 1 drop EYEBOTH BID 06/27/14 [History] Thyroid,Pork [Nature-Throid] 65 mg PO DAILY 06/27/14 [History] Aspirin [Adult Low Dose Aspirin EC] 81 mg PO DAILY 09/23/16 [History] Clotrimazole 1 applic TOP DAILY 09/23/16 [History] Docusate Sodium [Colace] 200 mg PO DAILY 09/23/16 [History] Esomeprazole Magnesium [Nexium 24Hr] 20 mg PO DAILY 09/23/16 [History] Ibuprofen 800 mg PO Q8H PRN 09/23/16 [History] Polyethylene Glycol 3350 [MiraLAX] 17 gm PO DAILY PRN 09/23/16 [History] cycloSPORINE [Restasis] 1 drop EYEBOTH BID 09/23/16 [History] Acetaminophen/HYDROcodone [[place] 325-5 MG] 1 - 2 tab PO Q4H PRN #30 tablet 11/21 [Rx] Bisacodyl [Dulcolax] 10 mg PO BID #30 tablet 11/21/16 [Rx] Past Medical History HEENT History: Reports: Allergic Rhinitis, Other (See Below) Other HEENT History: C/O DRY EYES Cardiovascular History: Reports: Pacemaker Other Cardiovascular History: pacemaker 2008 FOR SSS Respiratory History: Reports: Asthma, Bronchitis, Recurrent Gastrointestinal History: Reports: GERD, Hemorrhoids, Inflammatory Bowel Disease , PUD Genitourinary History: Reports: Renal Calculus, UTI, Recurrent KENO WRITER History: Reports: Endometriosis, Polycystic Ovaries Musculoskeletal History: Reports: Back Pain, Chronic, Fibromyalgia, Osteoarthritis Other Musculoskeletal History: scoliosis Neurological History: Reports: Migraines Psychiatric History: Reports: None Endocrine/Metabolic History: Reports: Diabetes, Type II, Hypothyroidism Hematologic History: Reports: None Immunologic History: Reports: None Oncologic (Cancer) History: Reports: None Dermatologic History: Reports: None, Other (See Below) Other Dermatologic History: RASH FROM environmental ALLERGIES - Infectious Disease History Infectious Disease History: Reports: Chicken Pox, Measles, Mumps - Past Surgical History Head Surgeries/Procedures: Reports: None HEENT Surgical History: Reports: None Cardiovascular Surgical History: Reports: Pacer Respiratory Surgical History: Reports: None GI Surgical History: Reports: Cholecystectomy, Colonoscopy Female Surgical History: Reports: Dilitation & Evacuation, Other (See Below) Other Female Surgeries/Procedures: D&C. breast and cervical cysts removed and benign Endocrine Surgical History: Reports: None Neurological Surgical History: Reports: None Musculoskeletal Surgical History: Reports: None Oncologic Surgical History: Reports: None Dermatological Surgical History: Reports: None Social & Family History - Family History Family Medical History: Noncontributory - Tobacco Use Smoking Status *Q: Never Smoker Years of Tobacco use: 10 Packs/Tins Daily: 1 Used Tobacco, but Quit: No Month Tobacco Last Used: years ago Second Hand Smoke Exposure: No - Caffeine Use Caffeine Use: Reports: Coffee, Soda, Tea - Alcohol Use Days Per Week of Alcohol Use: 0 - Recreational Drug Use Recreational Drug Use: No ED ROS GENERAL - Review of Systems Review Of Systems: ROS reveals no pertinent complaints other than HPI. ED EXAM, GENERAL - Physical Exam Exam: See Below Course - Vital Signs Last Recorded V/S: Last Vital Signs Temp 36.6 C 11/26/16 06:28 Pulse 77 11/26/16 06:28 Resp 15 11/26/16 06:28 BP 116/59 L 11/26/16 06:28 Pulse Ox 92 L 11/26/16 06:28 Departure - Departure Time of Disposition: 06:54 Disposition: Home, Self-Care 01 Condition: Good Clinical Impression: Constipation Qualifiers: Constipation type: other constipation type Qualified Code(s): K59.09 - Other constipation - Discharge Information Forms: ED Department Discharge Additional Instructions: As we discussed you can use the mag citrate to help relieve your constipation and to take a shower to relieve here bladder if you need to. If you continue to have trouble you can contact Dr. Estevez's office and get or suggestions from him or his nurse.
== END 2016-11-26 07:02 | disposition home or self-care (01) ==
LOC: JP.ED 05:53
DX: K59.09 Other constipation (principal); J45.909 Unspecified asthma, uncomplicated; E11.9 Type 2 diabetes mellitus without complications; K21.9 Gastro-esophageal reflux disease without esophagitis; E03.9 Hypothyroidism, unspecified; Z87.442 Personal history of urinary calculi; Z88.8 Allergy status to other drugs, medicaments and biological substances; Z79.899 Other long term (current) drug therapy; Z79.82 Long term (current) use of aspirin; Z87.440 Personal history of urinary (tract) infections
CPT/HCPCS: 99283

== ENCOUNTER 2022-05-24 06:30 | Day surgery (SDC) | payer MEDICARE ==
[2022-05-24] MEDS ORDERED: Propofol 200 MG/20 ML SDV ONE (07:11)
[2022-05-24] MEDS ORDERED: Lactated Ringers 1,000 ML IV SCH (07:30)
[2022-05-24 08:50] VITALS: BP 142/76; PULSE 72
== END 2022-05-24 09:08 | disposition home or self-care (01) ==
LOC: JP.SDS 06:30
PROVIDERS: ATTEND Student in an Organized Health Care Education/Training Program
DX: K29.50 Unspecified chronic gastritis without bleeding (principal); K21.00 Gastro-esophageal reflux disease with esophagitis, without bleeding; K44.9 Diaphragmatic hernia without obstruction or gangrene; G47.33 Obstructive sleep apnea (adult) (pediatric); E78.5 Hyperlipidemia, unspecified; E11.9 Type 2 diabetes mellitus without complications; E03.9 Hypothyroidism, unspecified; Z88.1 Allergy status to other antibiotic agents; Z88.5 Allergy status to narcotic agent; Z79.899 Other long term (current) drug therapy
CPT/HCPCS: 43239; J2704; J7120

== ENCOUNTER 2022-07-12 06:30 | Day surgery (SDC) | payer MEDICARE ==
[~2022-07-12 06:30] MED LIST changes: -Bupivacaine 0.5%/EPINEPHrine 1:200,000 50 ML MDV ONE; -Dexamethasone 4 MG/ML SDV ONE; +Lactated Ringers 1,000 ML IV SCH; -Neostigmine Methylsulfate 1 MG/ML 5 ML Syringe ONE; -Ondansetron 4 MG/2 ML SDV ONE; -Propofol 200 MG/20 ML SDV ONE; -Rocuronium 50 MG/5 ML Vial ONE; -Succinylcholine/Normal Saline 200 MG/10 ML Syringe ONE; -fentaNYL 250 MCG/5 ML SDV ONE
[2022-07-12] MEDS ORDERED: Propofol 200 MG/20 ML SDV ONE (07:25)
[2022-07-12 08:45] VITALS: PULSE 70
[2022-07-12] MEDS ORDERED: Citric Acid/Simethicone/Sodium Bicarbonate Granules 4 GM Packet PO ONE (10:09)
[2022-07-12] MEDS ORDERED: Barium Sulfate 98% Powder for Susp 340 GM Bottle PO SCH (10:15)
[2022-07-12 10:42] VITALS: BP 148/82
== END 2022-07-12 10:30 | disposition home or self-care (01) ==
LOC: JP.SDS 06:30
PROVIDERS: ATTEND Student in an Organized Health Care Education/Training Program
DX: K21.00 Gastro-esophageal reflux disease with esophagitis, without bleeding (principal); K29.50 Unspecified chronic gastritis without bleeding; K44.9 Diaphragmatic hernia without obstruction or gangrene; G47.33 Obstructive sleep apnea (adult) (pediatric); E78.5 Hyperlipidemia, unspecified; E03.9 Hypothyroidism, unspecified; E11.9 Type 2 diabetes mellitus without complications; Z79.899 Other long term (current) drug therapy; Z88.5 Allergy status to narcotic agent; Z88.1 Allergy status to other antibiotic agents
CPT/HCPCS: 43239; 74240; 93005; J2704; J7120

== ENCOUNTER 2022-10-20 06:32 | Day surgery (SDC) | payer MEDICARE ==
[2022-10-20] MEDS ORDERED: Lactated Ringers 1,000 ML IV SCH (07:00)
[2022-10-20] MEDS ORDERED: Propofol 200 MG/20 ML SDV ONE (07:00)
[2022-10-20] MEDS ORDERED: fentaNYL 50 MCG/ML SDV ONE (07:00)
[2022-10-20 09:19] VITALS: BP 133/74; PULSE 68
== END 2022-10-20 09:15 | disposition home or self-care (01) ==
LOC: JP.SDS 06:32
PROVIDERS: ATTEND Student in an Organized Health Care Education/Training Program
DX: K29.50 Unspecified chronic gastritis without bleeding (principal); K22.70 Barrett's esophagus without dysplasia; K44.9 Diaphragmatic hernia without obstruction or gangrene; K21.00 Gastro-esophageal reflux disease with esophagitis, without bleeding; G47.33 Obstructive sleep apnea (adult) (pediatric); K58.9 Irritable bowel syndrome, unspecified; E78.00 Pure hypercholesterolemia, unspecified; Z88.1 Allergy status to other antibiotic agents; Z88.8 Allergy status to other drugs, medicaments and biological substances
CPT/HCPCS: 43239; 88305; 88342; J2704; J3010; J7120